=== PATIENT | female | born 1970 | race African-American/Black ===

== ENCOUNTER 2016-05-31 09:30 | Emergency (ER) | payer SELFPAY ==
[~2016-05-31] VITALS: Wt 148.0 kg
[2016-05-31] MEDS ORDERED: PRED20TA PO (10:14)
[2016-05-31] MEDS ORDERED: PROM5SYR2 PO (10:16)
--- NOTE | 2016-05-31 10:28 | ERD ---
ER Documentation Chief Complaint Date/Time DATE: 05/31/16 TIME: 10:25 Chief Complaint dry cough for the past few days. no fevers. no congestion HPI Patient is a 45-year-old female with a past medical history of chronic bronchitis who presents to the ED with cough for 2 days. She states that she gets these episodes every 6 months. She states that she has had this in the past. Denies chest pain, shortness of breath or difficulty breathing. Denies fever or chills. Denies runny nose. Denies abdominal pain, nausea, vomiting or diarrhea. Denies neck pain or swelling. Denies recent travel, recent surgeries or use of OCPs. Patient states that she usually takes promethazine with codeine 10 mL's and prednisone. She states that she uses albuterol and Atrovent at home and used her inhaler this morning. ROS All systems reviewed and are negative except as per history of present illness. Medications Home Meds Active Scripts Promethazine HCl/Codeine (Prometh-Codein 6.25-10 mg/5 ml) 5 Ml Syrup, 10 ML PO BID for 7 Days Prov:CRISTI WILL PA-C 05/31/16 Prednisone* (Prednisone*) 20 Mg Tab, 40 MG PO DAILY for 4 Days, TAB Prov:CRISTI WILL PA-C 05/31/16 Allergies Allergies: Coded Allergies: dextromethorphan (Verified Allergy, Mild, HIVES, 05/31/16) guaifenesin (Verified Allergy, Mild, HIVES, 05/31/16) PMhx/Soc History of Surgery: Yes (C SECTION) Anesthesia Reaction: No Hx Neurological Disorder: No Hx Respiratory Disorders: Yes (CHRONIC BRONCHITIS) Hx Psychiatric Problems: No Hx Miscellaneous Medical Probl: No Hx Alcohol Use: No Hx Substance Use: No Hx Tobacco Use: Yes Smoking Status: Current some day smoker FmHx Family History: No coronary disease, No diabetes, No other Physical Exam Vitals Vital Signs Date Time Temp Pulse Resp B/P Pulse Ox O2 Delivery O2 Flow Rate FiO2 05/31/16 09:41 98.8 85 20 140/91 98 Physical Exam GENERAL: Well-developed, well-nourished female. Appears in no acute distress. HEAD: Normocephalic, atraumatic. EYES: Pupils are equally reactive bilaterally. EOMs grossly intact. No conjunctival erythema. ENT: Moist mucous membranes. No uvula deviation. No kissing tonsils. No exudates. NECK: Supple. No lymphadenopathy or thyromegaly. No meningismus. negative kernig. negative brudinski. LUNG: Clear to auscultation bilaterally. No rhonchi, wheezing, rales or coarse breath sounds. No retractions no wheezing HEART: Regular rate and rhythm. No murmurs, rubs or gallops. Extremities: Equal pulses bilaterally. No peripheral clubbing, cyanosis or edema. No unilateral leg swelling. NEUROLOGIC: Alert and oriented. Moving all four extremities. 5/5 strength in all extremities. Normal speech. Steady gait. Negative Homans sign SKIN: Normal color. Warm and dry. No rashes or lesions. Capillary refill < 2 seconds Procedures/MDM ER COURSE: I kept the patient and/or family informed of laboratory and diagnostic imaging results throughout the emergency room course. MEDICAL DECISION MAKING: This is a 45-year-old female who presents with cough. Vital signs were reviewed. Patient is afebrile. Patient is not hypoxic. Patient has cough likely related to her chronic bronchitis. This is patient's first visit in the ER and I have low suspicion for drug-seeking behavior. Even though patient stated that she does usually receive 10 mL's of promethazine with codeine and is allergic to dextromethorphan and guaifenesin.. I will be sending the patient home with prescription for promethazine with codeine and prednisone. Low suspicion for pneumonia, PE, pneumothorax, ACS, epiglottitis, obstruction, TB, pertussis, meningitis, sepsis. DISCHARGE: At this time, patient is stable for discharge and outpatient management with no new complaints during the ER course. Patient was sent home with promethazine with codeine and prednisone. Patient will be discharged home with instructions to recheck for new or worsening symptoms such as fever, nausea, weakness, LOC and to follow up with primary care in the next 1-2 days. Patient was advised to return to the ER for any new or worsening symptoms. Plan was discussed and patient and/or family understands and agrees. Home instructions were given. Departure Diagnosis: Primary Impression: Chronic bronchitis Chronic bronchitis type: unspecified Qualified Code: J42 - Chronic bronchitis, unspecified chronic bronchitis type Additional Impression: Cough Condition: Stable Patient Instructions: Cough, Chronic, Uncertain Cause, (Adult) Additional Instructions: Call your primary care doctor TOMORROW for an appointment during the next 1-2 days.See the doctor sooner or return here if your condition worsens before your appointment time. CRISTI WILL PA-C May 31, 2016 10:28
== END 2016-05-31 10:36 | disposition home or self-care (01) ==
LOC: FTE 09:30
DX: J42 Unspecified chronic bronchitis (principal); F17.210 Nicotine dependence, cigarettes, uncomplicated
CPT/HCPCS: 99284